=== PATIENT | male | born 1975 | race Caucasian/White ===

== ENCOUNTER 2019-09-05 10:30 | Emergency (ER) | payer SELFPAY ==
[2019-09-05 11:33] VITALS: BP 144/80
--- NOTE | 2019-09-05 15:34 | ER Document Report ---
ED Medical Screen (RME) - General Chief Complaint: Insect Bite Stated Complaint: POSSIBLE SPIDER BITE Time Seen by Provider: 09/05/19 13:12 TRAVEL OUTSIDE OF THE [place] IN LAST 30 DAYS: No - Related Data Allergies/Adverse Reactions: No Known Drug Allergies Allergy (Verified 05/06/11 15:33) Past Medical History - Social History Chew tobacco use (# tins/day): No Frequency of alcohol use: Occasional Drug Abuse: Marijuana GI Medical History: Reports: Hx Gastritis - Immunizations Hx Diphtheria, Pertussis, Tetanus Vaccination: No Physical Exam - Vital signs Vitals: Temp Pulse Resp BP Pulse Ox 97.9 F 92 18 144/80 H 98 09/05/19 11:32 09/05/19 11:32 09/05/19 11:32 09/05/19 11:32 09/05/19 11:32 Course - Re-evaluation Re-evalutation: 09/05/19 15:33 Patient was seen by the PA student, eloped from the emergency department before I was able to see this patient due to a patient coding shortly after the PA student saw him. - Vital Signs Vital signs: Temp Pulse Resp BP Pulse Ox 97.9 F 92 18 144/80 H 98 09/05/19 11:32 09/05/19 11:32 09/05/19 11:32 09/05/19 11:32 09/05/19 11:32 Doctor's Discharge - Discharge Condition: Good Disposition: AGAINST MEDICAL ADVICE Forms: Return to Work
== END 2019-09-05 14:29 | disposition left against medical advice (07) ==
LOC: ER 10:30
DX: T14.8XXA Other injury of unspecified body region, initial encounter (principal); W57.XXXA Bitten or stung by nonvenomous insect and other nonvenomous arthropods, initial encounter; F12.10 Cannabis abuse, uncomplicated; Z53.20 Procedure and treatment not carried out because of patient's decision for unspecified reasons
CPT/HCPCS: 99281